=== PATIENT | female | born 1960 | race Caucasian/White ===

== ENCOUNTER 2021-11-17 17:57 | Emergency (ER) | payer OTHER ==
[~2021-11-17] VITALS: Ht 162.6 cm; Wt 112.5 kg
[2021-11-17] MEDS ORDERED: TRAMADOL HCL 50 MG TAB PO ONE (18:30)
[2021-11-17] MEDS ORDERED: ULTRAM50 MG PO (22:13)
== END 2021-11-17 22:30 | disposition home or self-care (01) ==
LOC: ER 18:18
DX: K22.5 Diverticulum of esophagus, acquired (principal); M23.612 Other spontaneous disruption of anterior cruciate ligament of left knee; S82.52XA Displaced fracture of medial malleolus of left tibia, initial encounter for closed fracture; S09.90XA Unspecified injury of head, initial encounter; R07.89 Other chest pain; V43.52XA Car driver injured in collision with other type car in traffic accident, initial encounter; Y92.488 Other paved roadways as the place of occurrence of the external cause
CPT/HCPCS: 70450; 71045; 71250; 72040; 72070; 72125; 99284

== ENCOUNTER 2021-11-21 12:55 | Emergency (ER) | payer OTHER ==
[~2021-11-21] VITALS: Ht 162.6 cm; Wt 112.5 kg
[~2021-11-21 12:55] MED LIST: ULTRAM50 MG PO
[2021-11-21] MEDS ORDERED: CYCLOBENZAPRINE HCL 10 MG TAB PO ONE (13:30)
[2021-11-21] MEDS ORDERED: KETOROLAC TROMETHAMINE 10 MG TAB PO ONE (13:30)
[2021-11-21] MEDS ORDERED: CYCLOBENZAPRINE5 MG PO (14:39)
== END 2021-11-21 15:15 | disposition home or self-care (01) ==
LOC: ER 13:00
DX: R07.89 Other chest pain (principal); S20.01XD Contusion of right breast, subsequent encounter; V89.2XXD Person injured in unspecified motor-vehicle accident, traffic, subsequent encounter
CPT/HCPCS: 71101; 99283